=== PATIENT | male | born 1955 | race Caucasian/White ===

== ENCOUNTER 2018-05-23 07:47 | Inpatient (IN) | payer BC ==
[~2018-05-23 07:47] MED LIST: POVIDONE-IODINE 20 ML in SODIUM CL IRRIG SOLUTION 500 ML IRR ONE; ROPIVACAINE 0.2% 80 MG, EPINEPHrine 0.2 MG in SYRINGE 0 ML IU ONE; ROPIVACAINE 0.2% 80 MG, EPINEPHrine 0.2 MG, KETOROLAC TROMETHAMINE 30 MG in SYRINGE 0 ML IU ONE; TRANEXAMIC ACID 1,000 MG in NS 100 ML IV ONE; TRANEXAMIC ACID 3,000 MG in NS (SYRINGE) 50 ML IRR ONE
[2018-05-23] MEDS ORDERED: ONDANSETRON 4 MG/2 ML VIAL IVP ONE (08:00)
[2018-05-23] MEDS ORDERED: FAMOTIDINE 20 MG TAB PO ONE (08:00)
[2018-05-23] MEDS ORDERED: GABAPENTIN 300 MG CAP PO ONE (08:00)
[2018-05-23] MEDS ORDERED: DEXAMETHASONE 4 MG/ML VIAL IVP ONE (08:00)
[2018-05-23] MEDS ORDERED: ACETAMINOPHEN 325 MG TAB PO ONE (08:00)
[2018-05-23] MEDS ORDERED: ceFAZolin 2 GM/DEXTROSE 100 ML IV ONE (08:00)
[2018-05-23] MEDS ORDERED: LR 1,000 ML IV ONE (08:01)
[2018-05-23] MEDS ORDERED: LIDOCAINE 1% 2 ML INJ ID PRN (08:01)
[2018-05-23] MEDS ORDERED: TRANEXAMIC ACID 3,000 MG/50 ML BAG IRR ONE (08:20)
[2018-05-23] MEDS ORDERED: ceFAZolin 1 GM/5 ML SYR ONE (08:20)
--- NOTE | 2018-05-23 09:21 | PDANEPAE ---
ANE History of Present Illness 63 y/o male here for right hip arthroplasty ANE Past Medical History - Cardiovascular History Hx Hypertension: No Hx Arrhythmias: No Hx Chest Pain: No Hx Coronary Artery / Peripheral Vascular Disease: No Hx CHF / Valvular Disease: No Hx Palpitations: No - Pulmonary History Hx COPD: No Hx Asthma/Reactive Airway Disease: No Hx Recent Upper Respiratory Infection: No Hx Oxygen in Use at Home: No Hx Sleep Apnea: No Sleep Apnea Screening Result - Last Documented: Negative - Neurologic History Hx Cerebrovascular Accident: No Hx Seizures: No Hx Dementia: No - Endocrine History Hx Diabetes: Yes - Renal History Hx Renal Disorders: No - Liver History Hx Hepatic Disorders: No - Neurological & Psychiatric Hx Hx Neurological and Psychiatric Disorders: No - Cancer History Hx Cancer: No - Congenital Disorder History Hx Congenital Disorders: No - GI History Hx Gastrointestinal Disorders: No - Other Health History Other Health History: lower right teeth dental implants. left upper teeth missing and in process of having implants put in. glasses for reading - Chronic Pain History Chronic Pain: Yes (right hip) - Surgical History Prior Surgeries: right meniscectomy 30 years ago. 2009 left hip resurfacing ANE Review of Systems Review of systems is: negative Review of Systems: - Exercise capacity Exercise capacity: >=4 METS METS (RN): 4 METS ANE Patient History - Allergies Allergies/Adverse Reactions: ibuprofen Allergy (Verified 05/09/18 11:03) Hives Sulfa (Sulfonamide Antibiotics) Allergy (Verified 05/08/18 11:51) Rash - Home Medications Home medications: home medication list seen and reviewed Home Medications: Acetaminophen [Tylenol ES 500 mg (*)] 500 mg PO Q6HRS PRN 05/08/18 [Last Taken 05/22/18 14:00] Ascorbic Acid [Vitamin C 500 mg (*)] 500 mg PO DAILY 05/08/18 [Last Taken 04:00] Cholecalciferol Vit D3 [Vitamin D3 (*)] 1,000 units PO DAILY 05/08/18 [Last Taken 05/16/18] Glucosamine/Chondroitin [Glucosamine/Chondroitin (*)] 1 each PO DAILY 05/08/18 [ Last Taken 05/16/18] Multivitamins [Multivitamin (*)] 1 each PO DAILY 05/08/18 [Last Taken 05/16/18] Simvastatin [Zocor] 20 mg PO HS 05/08/18 [Last Taken 05/22/18 20:00] Tadalafil [Cialis] 20 mg PO AD PRN 05/08/18 [Last Taken 05/21/18] celeCOXIB [Celebrex (*)] 200 mg PO BID PRN 05/08/18 [Last Taken 05/22/18 20:00] metFORMIN HCL [Glucophage 500 mg (*)] 500 mg PO BIDMEAL 05/08/18 [Last Taken 12/02 20:00] - NPO status NPO Status: no food or drink >8 hours NPO Since - Liquids (Date): 05/23/18 NPO Since - Liquids (Time): 05:00 NPO Since - Solids (Date): 05/22/18 NPO Since - Solids (Time): 19:30 - Smoking Hx Smoking Status: Never smoked - Family Anes Hx Family Hx Anesthesia Complications: none ANE Labs/Vital Signs - Vital Signs Blood Pressure: 140/89 Heart Rate: 68 Respiratory Rate: 19 O2 Sat (%): 95 Height: 172.72 cm Weight: 88.451 kg ANE Physical Exam - Airway Mallampati Score: Class 3 Mouth exam: normal dental/mouth exam - Pulmonary Pulmonary: clear to auscultation - Cardiovascular Cardiovascular: regular rate and rhythym - ASA Status ASA Status: II ANE Anesthesia Plan Anesthesia Plan: spinal
--- NOTE | 2018-05-23 09:51 | PDHPUP ---
History & Physical Update H&P update statement: This history and physical update is based on an assessment of the patient which was completed after admission or registration (within 24 hours), but prior to the surgery/procedure. H&P update: H&P reviewed & patient examined
[2018-05-23] MEDS ORDERED: MIDAZOLAM 2 MG/2 ML VIAL ONE (10:47)
[2018-05-23] MEDS ORDERED: BUPIVACAINE/DEXTROSE 7.5MG/ML 2 ML SPINAL AMP SP ONE ×2 (10:56→11:21)
[2018-05-23] MEDS ORDERED: PROPOFOL/EMULSION 500 MG/50 ML BOTTLE IV ONE (11:05)
[2018-05-23] MEDS ORDERED: GLYCOPYRROLATE 0.2 MG/1 ML VIAL ONE ×2 (11:41)
[2018-05-23] MEDS ORDERED: ePHEDrine SULFATE 25 MG/5 ML SYR ONE ×3 (11:41→12:28)
[2018-05-23] MEDS ORDERED: PHENYLEPHRINE HCL 100 MCG/ML SYR ONE (11:41)
[2018-05-23] MEDS ORDERED: PHENYLEPHRINE HCL 100 MCG/ML SYR IVP PRN (12:20)
[2018-05-23] MEDS ORDERED: NALOXONE HCL 0.4 MG/ML INJ IVP PRN (12:20)
[2018-05-23] MEDS ORDERED: ONDANSETRON 4 MG/2 ML VIAL IVP PRN ×2 (12:20→12:40)
[2018-05-23] MEDS ORDERED: fentaNYL 100 MCG/2 ML INJ IVP PRN (12:20)
--- NOTE | 2018-05-23 12:20 | POSTANESTH ---
Post Anesthetic Evaluation Respiratory Status: Normal, Stable Level of Consciousness/Mental Status: Can Participate in Eval Pain Control: Adequate, Prn Tx Ordered Nausea/Vomiting Control: Adequate, Prn Tx Ordered Complications Possibly Related to Anesthesia: None Noted
[2018-05-23] MEDS ORDERED: PROPOFOL 200 MG/20 ML VIAL ONE (12:25)
--- NOTE | 2018-05-23 12:37 | POSTOPPROG ---
Post Op Note Date of Operation: 05/23/18 Surgeon: Sigifredo Varner Watch Repair Person: Ronni Anesthesiologist: María Cassidy Anesthesia: IV Sedation, Spinal Post-op Diagnosis: Right hip advanced degenerative arthritis Procedure: Right total hip arthroplasty Inf/Abcess present in the surg proc area at time of surgery?: No EBL: 100-500
[2018-05-23] MEDS ORDERED: PROMETHAZINE HCL 25 MG/ML INJ IVP PRN (12:40)
[2018-05-23] MEDS ORDERED: diphenhydrAMINE 25 MG CAP PO PRN (12:40)
[2018-05-23] MEDS ORDERED: TEMAZEPAM 15 MG CAP PO PRN (12:40)
[2018-05-23] MEDS ORDERED: POLYETHYLENE GLYCOL 3350 17 GM PKT PO PRN (12:40)
[2018-05-23] MEDS ORDERED: MAGNESIUM HYDROXIDE 30 ML UDCUP PO PRN (12:40)
[2018-05-23] MEDS ORDERED: ONDANSETRON DISINTEGRATING 4 MG TAB PO PRN (12:40)
[2018-05-23] MEDS ORDERED: traMADol 50 MG TAB PO PRN (12:40)
[2018-05-23] MEDS ORDERED: DIPHENOXYLATE/ATROPINE LOMOTIL 1 TAB PO PRN (12:40)
[2018-05-23] MEDS ORDERED: CYCLOBENZAPRINE 10 MG TAB PO PRN (12:40)
[2018-05-23] MEDS ORDERED: LACTULOSE 20 GM/30 ML UDCUP PO PRN (12:40)
[2018-05-23] MEDS ORDERED: METOCLOPRAMIDE 10 MG/2 ML VIAL IVP PRN (12:40)
[2018-05-23] MEDS ORDERED: NS 500 ML IV PRN (12:40)
[2018-05-23] MEDS ORDERED: PROMETHAZINE HCL 25 MG SUPPR PR PRN (12:40)
[2018-05-23] MEDS ORDERED: BISACODYL 10 MG SUPP PR PRN (12:40)
[2018-05-23] MEDS ORDERED: LR 1,000 ML IV SCH (13:00)
--- NOTE | 2018-05-23 13:36 | GOP ---
DATE OF OPERATION: 05/23/2018 SURGEON: Sigifredo Varner MD RED LEAD BURNER: Polo Diaz [facility] and JEREMY Rodriguez. ANESTHESIA: Combination of Marcaine, spinal, and IV sedation. ANESTHESIOLOGIST: Dr. María Cassidy. PREOPERATIVE DIAGNOSIS: 1. Right hip severe degenerative arthritis. 2. Right knee arthritis. POSTOPERATIVE DIAGNOSIS: 1. Right hip severe degenerative arthritis. 2. Right knee arthritis. PROCEDURE PERFORMED: 1. Right total hip arthroplasty. 2. Supartz injection in the right knee. FINDINGS: DESCRIPTION OF PROCEDURE: The patient was given 2 g of IV Ancef preoperatively within 60 minutes of surgery. He also received 1000 mg of IV tranexamic acid. He was placed on the operating room table and given spinal anesthesia with Marcaine by Dr. Cassidy. His right knee was prepped with ChloraPrep. H e was given another injection of Supartz. He was then given IV sedation. A Sierra catheter was not u sed. He wore a CODY stocking and SCD on the nonoperative leg. He was rolled to the left lateral decu bitus position. The position was secured with the pegboard table attachment. An axillary roll was u sed, and all pressure points were carefully padded. I was careful to lock his pelvis in a rigid vert ical position. His perineum was isolated with plastic adhesive drapes. The right hip and right lowe r extremity were prepped with ChloraPrep. They were draped free using sterile sheets, stockinette, a nd [place] plastic adhesive drapes. The [employer] time-out was performed to verify the correct surgical side and site and the correct patient identity. The [place] time-out was also performed. I made a 5-inch straight oblique posterolateral hip skin incision. The subcutaneous tissues were sha rply divided and hemostasis was obtained using electrocautery. His fascia vamsi was identified and sp lit along the axis of its fibers. I then curved posteriorly and proximally, and split the fascia of the gluteus chito and bluntly split the muscle fibers in line with their orientation. The [place] self-retaining retractor was inserted. His sciatic nerve was located, partially exposed, and protec cody throughout the procedure. The external rotators and the posterior hip capsule were divided as se parate layers at the base of the femoral neck, tagged, and reflected posteriorly. A smooth 8-inch St einmann pin was inserted vertically into the ilium, superior to the acetabulum. An 8-inch drill bit was inserted vertically into the greater trochanter and parallel to the first pin. The distance betw een the two was measured for leg length reference. His femoral head was dislocated posteriorly. Sev ere degenerative changes were present on his femoral head. The femoral neck was osteotomized at the appropriate level and inclination. I was careful to preserve all the posterior capsule and most of the anterior capsule. The remnant of his damaged labrum was excised. I prepared the femur first. This allowed me to drug enforcement administration agent the amount of natural femoral neck anteversion. He had between 10 and 15 degrees of natural femoral neck anteversion. His canal was opened lateral ly with a box chisel. I hand broached sequentially up to a size 5. I used a Miguel Accolade II siz e 5 broach as a trial stem. I was careful to lateralize adequately. Appropriate retractors were inserted to expose the acetabulum. The acetabulum was reamed sequentiall y up to 54 mm. I selected a 54 mm [place] Tritanium cluster hole hemispherical shell. This was dick ed securely into place in the proper degree of inclination and anteversion. I used the transverse ac etabular ligament and other acetabular bony landmarks to help me properly orient the cup. I performed a series of trial reductions to determine length and stability. With the 5 standard offs et stem and a flush trial liner, I took intraoperative AP pelvis x-ray. This demonstrated excellent fit and fill of the femoral component. I thought I could have a little more horizontal cup with slig htly more anteversion. The leg lengths were excellent. I then went back and adjusted the cup positi on. The flush liner was inserted and tapped securely into place. The [place] Accolade II stem and a size 5 with standard offset was inserted, press-fit, and was very tight. I did 1 final trial reduct ion and confirmed that the 0 neck length with a 36 mm head was the proper combination. The [place] B iolox Delta ceramic head with an outside diameter of 36 mm and a neck length of 0 mm was tapped sanjeev winchester onto the clean trunnion. The acetabulum was irrigated, cleaned, and the hip was reduced 1 final time. He had excellent anterior and posterior stability and the correct length. 40 mL of the joint anesthetic cocktail were injected into the capsule, the deep musculature, and the subcutaneous tissues along the skin edges. The joint was thoroughly irrigated 1 final time with a di lute Betadine solution. His sciatic nerve was reinspected and looked unharmed. The external rotators and the posterior hip capsule were repaired in separate layers with #2 FiberWir e sutures through drill holes in the greater trochanter. The fascia vamsi was closed first with 2 fig [id number] #2 FiberWire sutures, followed by a running #2 barbed Ethicon Stratafix PDO suture. The subcutaneous tissues were closed with a running 0 barbed Ethicon Stratafix Monoderm suture. The ski n was closed with a running 3-0 barbed Ethicon Stratafix Monoderm subcuticular suture. The skin edge s were reapproximated and sealed with Dermabond glue. The wound was covered with a large piece of st erile Mepilex waterproof dressing. The sacral Mepilex dressing was also applied. A long-leg CODY stocking and SCD were applied to his right lower extremity. He wore a stocking on the opposite leg during the procedure. An abduction pillow was placed between his knees. He was awaken ed from anesthesia and rolled to the supine position on his [facility]. He was taken to PACU in satisfactory condition. There were no recognized intraoperative complications. The estimated blood loss was 400 mL. The sponge and needle count were correct on 2 occasions. I used a Miguel Tritanium Trident II cluster hole hemispherical shell with an outside diameter of 54 mm. The liner was a Miguel X3 flush highly cross-linked liner with an inside diameter of 36 mm. T he femoral component was a press-fit Miguel standard offset Accolade II stem in size 5. The femoral head was a Miguel Biolox Delta ceramic head with a 0 neck length and a 36 mm outside diameter. Polo Diaz and Danial Valdez acted as surgical assistants. Their assistance was a medical necess ity for safe completion the procedure. /[id number]/MODL
[2018-05-23] MEDS: metFORMIN HCL 500 MG TAB PO SCH (18:35)
[2018-05-23] MEDS: ACETAMINOPHEN 325 MG TAB PO SCH ×2 (18:35→23:43)
[2018-05-23] MEDS: ceFAZolin 2 GM/DEXTROSE 100 ML IV SCH (18:36)
[2018-05-23] MEDS: SENNOSIDES/DOCUSATE SODIUM TAB PO SCH (19:41)
[2018-05-23] MEDS: FAMOTIDINE 20 MG TAB PO SCH (19:42)
[2018-05-23] MEDS: oxyCODONE IR 5 MG TAB PO PRN (19:42)
[2018-05-23] MEDS ORDERED: ATORVASTATIN CALCIUM 10 MG TAB PO SCH (21:00)
[2018-05-23] MEDS: ASPIRIN 325 MG TAB PO SCH (21:32)
[2018-05-24] MEDS: oxyCODONE IR 5 MG TAB PO PRN ×3 (00:06→11:02)
[2018-05-24] MEDS: ceFAZolin 2 GM/DEXTROSE 100 ML IV SCH (03:49)
[2018-05-24] MEDS: ACETAMINOPHEN 325 MG TAB PO SCH ×2 (06:29→11:03)
[2018-05-24] MEDS: FAMOTIDINE 20 MG TAB PO SCH (08:08)
[2018-05-24] MEDS: SENNOSIDES/DOCUSATE SODIUM TAB PO SCH (08:08)
[2018-05-24] MEDS: metFORMIN HCL 500 MG TAB PO SCH (08:08)
[2018-05-24] MEDS: ASPIRIN 325 MG TAB PO SCH (08:08)
[2018-05-24] MEDS ORDERED: FERROUS SULFATE 140 MG TAB.ER PO SCH (09:00)
--- NOTE | 2018-05-24 09:19 | SOAPPROG ---
SOAP Progress Note Assessment/Plan: Assessment: Afebrile. Awake and alert. Moderate pain. Up and walking in frost. Sciatic nerve intact. H/H is good. Films look good. Small spot of blood on dsg. Plan: Continue PT today. DC later today. 05/24/18 09:17 Objective: Vital Signs Temp Pulse Resp BP Pulse Ox 37.1 C 78 16 109/77 93 05/24/18 07:44 05/24/18 07:44 05/24/18 07:44 05/24/18 07:44 05/24/18 07:44 Laboratory Results 05/24/18 04:14 05/23/18 05/24/18 05/25/18 05:59 05:59 05:59 Intake Total 860 Output Total 1375 Balance -515 ICD10 Worksheet Patient Problems: Problems Problem Status Onset Osteoarthritis of right hip Acute
--- NOTE | 2018-05-24 09:35 | GDS ---
ADMISSION DIAGNOSIS: Right hip degenerative arthritis. DISCHARGE DIAGNOSIS: Right hip degenerative arthritis. OPERATION PERFORMED: 05/23/2018: A right total hip arthroplasty. POSTOPERATIVE COMPLICATIONS: None. CONDITION ON DISCHARGE: Improved. DESCRIPTION OF HOSPITAL COURSE: The patient was admitted to the hospital on the morning of surgery. His admission CBC, BUN, creatinine, and electrolytes were all normal. The same day, under a combina tion of Marcaine, spinal, and IV sedation, he underwent a right total hip arthroplasty. Postoperativ ranulfo, he was treated with multimodal DVT prophylaxis, including aspirin. On the first postoperative d ay, his hemoglobin and hematocrit were 11.4 and 32.9. He was seen by Physical Therapy and made good progress with ambulation and stairs. By the time of discharge, he was afebrile, and his wound was dr y and he was independent walking with a walker. DISPOSITION: The patient discharged to his home. He will go to outpatient physical therapy. He may progress to full weightbearing on the right as tolerated. CODY stockings for 1 week. Continue aspir in 325 mg p.o. daily for 21 days. He has prescriptions for oxycodone, tramadol, and Celebrex for don n. I will see him back in the office on June 15, 2018. If there are any problems, he is to call me at the office. /[id number]/MODL
--- NOTE | 2018-05-24 09:55 | ASMTLACE ---
LACE Length of stay for Answers: 2 days current admission Acuity / Level of Answers: Yes Care: Did the patient have an inpatient admission? Comorbidities - select Answers: Diabetes (uncontrolled or all that apply controlled) Opioid dependence / Chronic pain # of Emergency department Answers: 0 visits in the last 6 months Score: 10 Date Signed: 05/24/2018 09:54 AM Electronically Signed By:EFRAIN Umaña
--- NOTE | 2018-05-24 09:56 | ASMTCMCOM ---
CM Note CM Note Notes: Pt had planned OA of hip. PT rec home/outpatient. Pt to have outpatient PT per MD rec. No CM d/c needs identified. Date Signed: 05/24/2018 09:55 AM Electronically Signed By:EFRAIN Umaña
[2018-05-24 11:01] VITALS: BP 117/66
== END 2018-05-24 12:07 | disposition home or self-care (01) | DRG 470 ==
LOC: F3N 07:47 → OBSVTOIN 07:47 → F3N 14:36
PROVIDERS: ADMIT Orthopaedic Surgery; ATTEND Orthopaedic Surgery
PROC: 0SR904Z Replacement of Right Hip Joint with Ceramic on Polyethylene Synthetic Substitute, Open Approach (ICD-10-PCS; principal; 2018-05-23 09:45)
PROC: 3E0U3GC Introduction of Other Therapeutic Substance into Joints, Percutaneous Approach (ICD-10-PCS; principal; 2018-05-23 09:45)
DX: M16.11 Unilateral primary osteoarthritis, right hip (principal); M17.11 Unilateral primary osteoarthritis, right knee; E11.9 Type 2 diabetes mellitus without complications; E78.00 Pure hypercholesterolemia, unspecified
CPT/HCPCS: 97116-GP; 97161-GP; 97165-GO; 97530-GP; J0171; J0690; J1100; J2250; J2370; J2405; J2704; J2795

== ENCOUNTER → 2018-10-03 | Outpatient (CLI) | payer BC | LOC: FIMAGING 09:20 | PROVIDERS: ATTEND Orthopaedic Surgery | DX: M17.11 Unilateral primary osteoarthritis, right knee (principal) ==

== ENCOUNTER 2018-10-24 05:51 | Observation (INO) | payer BC ==
[2018-10-24] MEDS ORDERED: TRANEXAMIC ACID 1,000 MG in NS 100 ML IV ONE (06:00)
[2018-10-24] MEDS ORDERED: TRANEXAMIC ACID 3,000 MG in NS (SYRINGE) 50 ML IRR ONE (06:00)
[2018-10-24] MEDS ORDERED: ROPIVACAINE 0.2% 80 MG, EPINEPHrine 0.2 MG, KETOROLAC TROMETHAMINE 30 MG in SYRINGE 0 ML IU ONE (06:00)
[2018-10-24] MEDS ORDERED: POVIDONE-IODINE 20 ML in SODIUM CL IRRIG SOLUTION 500 ML IRR ONE (06:00)
[2018-10-24] MEDS ORDERED: ONDANSETRON 4 MG/2 ML VIAL IVP ONE (06:03)
[2018-10-24] MEDS ORDERED: ACETAMINOPHEN 325 MG TAB PO ONE (06:03)
[2018-10-24] MEDS ORDERED: FAMOTIDINE 20 MG TAB PO ONE (06:03)
[2018-10-24] MEDS ORDERED: ceFAZolin 2 GM/DEXTROSE 100 ML IV ONE (06:03)
[2018-10-24] MEDS ORDERED: DEXAMETHASONE 4 MG/ML VIAL IVP ONE (06:03)
[2018-10-24] MEDS ORDERED: LR 1,000 ML IV ONE (06:06)
[2018-10-24] MEDS ORDERED: VANCOMYCIN 1 GM VIAL ONE (06:47)
[2018-10-24] MEDS ORDERED: TRANEXAMIC ACID 3,000 MG/50 ML BAG IRR ONE (06:47)
[2018-10-24] MEDS ORDERED: ceFAZolin 1 GM/5 ML SYR ONE (06:47)
[2018-10-24] MEDS ORDERED: MIDAZOLAM 2 MG/2 ML VIAL IVP ONE (06:51)
--- NOTE | 2018-10-24 06:53 | PDANEPAE ---
ANE Past Medical History - Cardiovascular History Hx Hypertension: No Hx Arrhythmias: No Hx Chest Pain: No Hx Coronary Artery / Peripheral Vascular Disease: No Hx CHF / Valvular Disease: No Hx Palpitations: No Cardiovascular History Comment: bp dropped after spinal in may 2018 - Pulmonary History Hx COPD: No Hx Asthma/Reactive Airway Disease: No Hx Recent Upper Respiratory Infection: No Hx Oxygen in Use at Home: No Hx Sleep Apnea: No Sleep Apnea Screening Result - Last Documented: Negative - Neurologic History Hx Cerebrovascular Accident: No Hx Seizures: No Hx Dementia: No - Endocrine History Hx Diabetes: Yes Endocrine History Comment: type 2 - Renal History Hx Renal Disorders: No - Liver History Hx Hepatic Disorders: No - Neurological & Psychiatric Hx Hx Neurological and Psychiatric Disorders: No - Cancer History Hx Cancer: No - Congenital Disorder History Hx Congenital Disorders: No - GI History Hx Gastrointestinal Disorders: No - Other Health History Other Health History: lower right teeth dental implants. left upper teeth missing and in process of having implants put in. glasses for reading - Chronic Pain History Chronic Pain: Yes (right hip) - Surgical History Prior Surgeries: right meniscectomy 30 years ago. 2009 left hip resurfacing ANE Review of Systems Review of Systems: - Exercise capacity METS (RN): 4 METS ANE Patient History - Allergies Allergies/Adverse Reactions: ibuprofen Allergy (Verified 10/11/18 17:51) Hives Sulfa (Sulfonamide Antibiotics) Allergy (Verified 10/11/18 17:51) Rash - Home Medications Home medications: home medication list seen and reviewed Home Medications: Ascorbic Acid [Vitamin C 500 mg (*)] 2,000 mg PO DAILY 05/08/18 [Last Taken 09/05] Cholecalciferol Vit D3 [Vitamin D3 (*)] 2,000 units PO DAILY 05/08/18 [Last Taken 10/23/18] Glucosamine/Chondroitin [Glucosamine/Chondroitin (*)] 1 each PO DAILY 05/08/18 [ Last Taken 10/17/18] Multivitamins [Multivitamin (*)] 1 each PO DAILY 05/08/18 [Last Taken 10/17/18] Simvastatin [Zocor] 20 mg PO HS 05/08/18 [Last Taken 10/23/18] Tadalafil [Cialis] 20 mg PO AD PRN 05/08/18 [Last Taken 10/21/18] metFORMIN HCL [Glucophage 500 mg (*)] 500 mg PO BIDMEAL 05/08/18 [Last Taken 03/05] - NPO status NPO Status: no food or drink >8 hours NPO Since - Liquids (Date): 10/24/18 NPO Since - Liquids (Time): 03:45 NPO Since - Solids (Date): 10/23/18 NPO Since - Solids (Time): 19:00 - Smoking Hx Smoking Status: Never smoked - Family Anes Hx Family Hx Anesthesia Complications: none ANE Labs/Vital Signs - Labs - CBC Platelet Count: 245 - Vital Signs Height: 172.72 cm Weight: 88.451 kg ANE Physical Exam - Airway Neck exam: FROM Mallampati Score: Class 2 Mouth exam: normal dental/mouth exam - Pulmonary Pulmonary: clear to auscultation - Cardiovascular Cardiovascular: regular rate and rhythym - ASA Status ASA Status: II ANE Anesthesia Plan Anesthesia Plan: spinal
[2018-10-24] MEDS ORDERED: PROPOFOL/EMULSION 500 MG/50 ML BOTTLE IV ONE ×2 (07:11→07:42)
[2018-10-24] MEDS ORDERED: GLYCOPYRROLATE 0.2 MG/1 ML VIAL ONE (07:30)
[2018-10-24] MEDS ORDERED: RANITIDINE 50 MG/2 ML VIAL ONE (07:38)
[2018-10-24] MEDS ORDERED: METOCLOPRAMIDE 10 MG/2 ML VIAL ONE (07:38)
[2018-10-24] MEDS ORDERED: PHENYLEPHRINE HCL 100 MCG/ML SYR ONE (08:10)
[2018-10-24] MEDS ORDERED: BUPIVACAINE/DEXTROSE 7.5MG/ML 2 ML SPINAL AMP SP ONE (08:48)
[2018-10-24] MEDS ORDERED: ROPIVACAINE HCL 150 MG/30 ML INJ ONE (08:49)
[2018-10-24] MEDS ORDERED: oxyCODONE IR 5 MG TAB PO PRN (09:11)
[2018-10-24] MEDS ORDERED: fentaNYL 100 MCG/2 ML INJ IVP PRN (09:11)
[2018-10-24] MEDS ORDERED: PHENYLEPHRINE HCL 100 MCG/ML SYR IVP PRN (09:11)
[2018-10-24] MEDS ORDERED: ONDANSETRON 4 MG/2 ML VIAL IVP PRN ×2 (09:11→10:04)
[2018-10-24] MEDS ORDERED: ALBUTEROL 3 ML DEYVIAL IH PRN (09:11)
[2018-10-24] MEDS ORDERED: MEPERIDINE 25 MG/0.5 ML AMP IVP PRN (09:11)
[2018-10-24] MEDS ORDERED: METOCLOPRAMIDE 10 MG/2 ML VIAL IVP PRN ×2 (09:11→10:04)
[2018-10-24] MEDS ORDERED: NALOXONE HCL 0.4 MG/ML INJ IVP PRN (09:11)
[2018-10-24] MEDS ORDERED: PROMETHAZINE HCL 25 MG/ML INJ IVP PRN ×2 (09:11→10:04)
[2018-10-24] MEDS ORDERED: LR 500 ML IV PRN (09:11)
[2018-10-24] MEDS ORDERED: DIAZEPAM 5 MG/ML 1 ML SYR IVP PRN (09:11)
[2018-10-24] MEDS ORDERED: HYDROmorphONE/DILAUDID 1 MG/ML INJ IVP PRN (09:11)
--- NOTE | 2018-10-24 09:29 | POSTOPPROG ---
Post Op Note Date of Operation: 10/24/18 Surgeon: Sigifredo Varner Starter Mechanic: Ronni Anesthesiologist: Ange Anesthesia: IV Sedation, Spinal Post-op Diagnosis: Right knee severe degenerative arthritis varus deformity Procedure: Jerome robot assisted right total knee arthroplasty. Inf/Abcess present in the surg proc area at time of surgery?: No EBL: 50-100 (Adductor canal block with indwelling catheter in the PACU.)
[2018-10-24] MEDS ORDERED: POLYETHYLENE GLYCOL 3350 17 GM PKT PO PRN (10:04)
[2018-10-24] MEDS ORDERED: BISACODYL 10 MG SUPP PR PRN (10:04)
[2018-10-24] MEDS ORDERED: traMADol 50 MG TAB PO PRN (10:04)
[2018-10-24] MEDS ORDERED: NS 500 ML IV PRN (10:04)
[2018-10-24] MEDS ORDERED: ONDANSETRON DISINTEGRATING 4 MG TAB PO PRN (10:04)
[2018-10-24] MEDS ORDERED: DIPHENOXYLATE/ATROPINE LOMOTIL 1 TAB PO PRN (10:04)
[2018-10-24] MEDS ORDERED: TEMAZEPAM 15 MG CAP PO PRN (10:04)
[2018-10-24] MEDS ORDERED: MAGNESIUM HYDROXIDE 30 ML UDCUP PO PRN (10:04)
[2018-10-24] MEDS ORDERED: PROMETHAZINE HCL 25 MG SUPPR PR PRN (10:04)
[2018-10-24] MEDS ORDERED: diphenhydrAMINE 25 MG CAP PO PRN (10:04)
[2018-10-24] MEDS ORDERED: LACTULOSE 20 GM/30 ML UDCUP PO PRN (10:04)
[2018-10-24] MEDS ORDERED: LR 1,000 ML IV SCH (10:30)
--- NOTE | 2018-10-24 10:51 | GOP ---
[f rep st] OPERATIVE REPORT DATE OF OPERATION: 10/23/2018 SURGEON: Sigifredo Varner MD MEDICAL CLAIMS EXAMINER: 1. Polo Diaz CFA. 2. Abilio Valdez, PAC. ANESTHESIA: A combination of Marcaine spinal, IV sedation and adductor canal block. ANESTHESIOLOGIST: María Cassidy MD. PREOPERATIVE DIAGNOSIS: Right knee severe degenerative arthritis with varus deformity. POSTOPERATIVE DIAGNOSIS: Right knee severe degenerative arthritis with varus deformity. PROCEDURE PERFORMED: October 23, 2018, [facility] robot-assisted right total knee arthroplasty. FINDINGS: DESCRIPTION OF PROCEDURE: The patient was given 2 g of IV Ancef preoperatively within 60 minutes of surgery. He also received 1000 mg of preoperative IV tranexamic acid. He was placed on the operatin g room table and given spinal anesthesia with Marcaine by Dr. María Cassidy. He was then placed supine and given IV sedation. A Sierra catheter was not used. He wore a CODY stocking and SCD on the nonoperati ve leg. His right lower extremity was prepped with ChloraPrep from the upper thigh tourniquet to the tips of the toes. It was draped free using sterile sheets, stockinette and Ioban plastic adhesive d rape. The lower leg was wrapped with compressive Coban. The [employer] time-out was performed to verify the correct patient identity and the c orrect surgical side and site. The [place] time-out was performed. The preoperative. [facility] surgical plan was confirmed. The DeMayo leg holding device was sterilely attached to the operating room tabl e and used throughout the procedure to help position the knee. Two 3 mm partially-threaded pins were inserted in a bicortical fashion in the anteromedial cortex of the tibia through puncture wounds abo ut 4 inches distal to the tibial tubercle. At this point, the leg was exsanguinated with a 6-inch co mpressive wrap and the tourniquet was inflated to 250 mmHg. I made a straight midline incision centered on the patella. Subcutaneous tissues were sharply divide d and hemostasis was obtained using electrocautery. A medial subcutaneous flap was developed and cap nakul and synovium were opened in a medial parapatellar fashion. The medial capsule and periosteum we re elevated off the rim the medial tibial plateau. Two 3 mm partially-threaded pins were inserted in the medial cortex of the distal femur in the supracondylar region inside the incision. The femoral checkpoint was inserted just anterior to the 2 bicortical pins. Tibial check point was inserted on t he anteromedial cortex of the tibia about an inch distal to the joint line. The computer arrays were attached and confirmed that the femoral and tibial arrays were both visualized by the computer. The bony anatomy of the knee was registered on the computer starting with a center rotation of the fe moral head, followed by the medial and lateral malleoli. The femoral and tibial surface anatomy were registered. Osteophytes were removed from the medial femoral condyle prior to joint balancing. I performed dynamic joint balancing. He was slightly tight medially. Preoperative plan called for a 6 femur and a 7 tibia. In order to achieve proper gap balancing, I applied 3 degrees of external ro tation of the femur and 1 degree of varus. I moved the tibia distally 1 mm and added 1 degree varus to the tibia. I ended up with 18 to 19 mm of gap in flexion and extension. I allowed for slightly m ore gap in extension to correct his mild preoperative flexion contracture. The robotic saw was positioned and registered. I made appropriate cuts on the femur. The robot was registered for the tibia and the proximal tibial cut was made. I used the correct jig to create the notch in the distal femur using a power oscillating saw in order to accommodate the posterior stabilized femoral component. The size 6 femoral component was applied . I was careful to center it on the distal femur. The posterior compartment was cleared of meniscal remnants. Osteophytes were removed from the back o f the femoral condyles. 40 mL of the joint anesthetic cocktail was injected into the posterior capsu le, the quadriceps muscle and tendon areas, and the subcutaneous tissues along the skin edges. The tibia was sized for a size 7 component. I used a central fin punch. I then drilled 2 additional fixation holes in the medial tibial plateau for the press-fit component. The bone medially was quit e dense. He had good quality bone and I was using press-fit components. With the trial components i n place, I selected a 9 mm posterior stabilized tibial insert. The knee came to full extension and f lexed to 130 degrees. His preoperative flexion contracture was corrected. His collateral ligaments were stable and balanced in extension and 90 degrees of flexion. The gaps on the computer were 18 to 19 mm in extension and flexion. The press-fit tibia component was inserted and tapped securely into place. It was a good tight fit. The femoral component was also tapped into place and was very tight. The 9 mm Triathlon plastic ins ert was inserted and locked into place. The tourniquet was deflated and total tourniquet time was 1 hour and 10 minutes. I then prepared the patella. The original thickness of the patella was measured. Peripheral osteophytes were removed. I cut a flat surface on the back of the patella. He was sized for a 38 mm x 11 mm asymmetric Triath sergo Tritanium press-fit patellar component. I removed enough bone from the patella such that the rem aining bone plus the thickness of the patellar component recreated the original thickness of the dahl lla. His composite thickness was 24 mm. The press-fit patellar component was applied and tightened. Patellar tracking was checked. It was excellent without any digital pressure. The wound was thoroughly irrigated with a dilute Betadine solution. 50 mL of tranexamic acid solutio n was instilled into the joint. The vastus medialis portion of the extensor mechanism was repaired with several interrupted figure-of -eight #2 FiberWire sutures. The capsule and synovium were closed first with multiple interrupted fi [id number] 0 PDS sutures, followed by a running #2 barbed Ethicon Stratafix PDO suture. Subcutane ous tissues were closed with a running 0 barbed Ethicon Stratafix Monoderm suture. The skin was clos ed with a running 3-0 barbed Ethicon Stratafix Monoderm subcuticular suture. The skin was sealed wit h half-inch Steri-Strips. The wound was covered with a large sterile Mepilex waterproof dressing. A long-leg CODY stocking was applied followed by the 6-inch compressive wrap. An SCD was applied follo wed by the cooling device. The sacral Mepilex dressing was applied. I used a size 6 Dutton Triathlon press-fit posterior stabilized femoral component, a size 7 Triathlo n Tritanium press-fit tibial component, a 9 mm posterior stabilized tibial insert and a 38 mm x 11 mm asymmetric patellar press-fit component. The sponge and needle counts were correct on 2 occasions. He was awakened from anesthesia, transferred to his gurney and taken to PACU in satisfactory conditio n. There were no recognized intraoperative complications. In the PACU, for additional postoperative pain control, Dr. Cassidy performed an adductor canal block wit h an indwelling catheter. Polo Diaz and Danial Valdez acted as surgical assistants. Their assistance was a medical necess ity for safe completion of the procedure. /[id number]/MODL
--- NOTE | 2018-10-24 11:30 | POSTANESTH ---
Post Anesthetic Evaluation Cardiovascular Status: Normal, Stable Respiratory Status: Normal, Stable Level of Consciousness/Mental Status: Can Participate in Eval Pain Control: Adequate, Prn Tx Ordered Nausea/Vomiting Control: Adequate, Prn Tx Ordered Complications Possibly Related to Anesthesia: None Noted
[2018-10-24] MEDS: KETOROLAC 15 MG/1 ML SDV IVP SCH ×2 (11:36→17:46)
[2018-10-24] MEDS: oxyCODONE IR 5 MG TAB PO PRN ×2 (13:36→20:56)
[2018-10-24] MEDS: ACETAMINOPHEN 325 MG TAB PO SCH ×2 (15:44→21:09)
[2018-10-24] MEDS: ceFAZolin 2 GM/DEXTROSE 100 ML IV SCH (15:45)
[2018-10-24] MEDS: CYCLOBENZAPRINE 10 MG TAB PO PRN (16:01)
--- NOTE | 2018-10-24 16:41 | SOAPPROG ---
SOCY Progress Note Assessment/Plan: Assessment: s/p right TKA, Jerome robot assisted - this morning Plan: Continue PT efforts Continue pain management - patient states Flexeril is helping quite a bit and may want a script when he goes home Continue VTE ppx: aspirin 325 mg once daily, CODY jones, SCDs Likely discharge tomorrow home with support from his . Patient states he has outpatient PT already scheduled 10/24/18 16:39 Subjective: Patient states he is feeling pretty good at this time. His main complaint was tightness/spasms in his right hamstrings that were making the ZeroKnee very uncomfortable, however Flexeril is helping. He is planning on going home with the support of his . He denies SOB, CP, fever, chills, nausea, vomiting. Objective: Vital Signs Temp Pulse Resp BP Pulse Ox 37.0 C 80 16 117/66 93 10/24/18 15:16 10/24/18 15:16 10/24/18 15:16 10/24/18 15:16 10/24/18 15:16 10/23/18 10/24/18 10/25/18 05:59 05:59 05:59 Intake Total 530 Output Total 700 Balance -170 Patient resting comfortably in bed, his is at the bedside. No acute distress. RLE: Surgical wound dressings are clean, dry and intact. Lower leg compartments are soft and nontender. Negative Homans sign. He can actively DF and PF the foot and great toe against resistance. Grossly NVI distally. ICD10 Worksheet Patient Problems: Problems Problem Status Onset Osteoarthritis of right knee Acute Osteoarthritis of right hip Acute
[2018-10-24] MEDS: metFORMIN HCL 500 MG TAB PO SCH (17:45)
[2018-10-24] MEDS: SENNOSIDES/DOCUSATE SODIUM TAB PO SCH (20:51)
[2018-10-24] MEDS: FAMOTIDINE 20 MG TAB PO SCH (20:52)
[2018-10-24] MEDS ORDERED: ATORVASTATIN CALCIUM 10 MG TAB PO SCH (21:00)
[2018-10-24] MEDS: ASPIRIN 325 MG TAB PO SCH (21:04)
[2018-10-25] MEDS: KETOROLAC 15 MG/1 ML SDV IVP SCH ×2 (00:11→06:22)
[2018-10-25] MEDS: ceFAZolin 2 GM/DEXTROSE 100 ML IV SCH (00:11)
[2018-10-25] MEDS: ACETAMINOPHEN 325 MG TAB PO SCH ×2 (03:38→08:07)
[2018-10-25] MEDS: CYCLOBENZAPRINE 10 MG TAB PO PRN (03:38)
[2018-10-25 07:29] VITALS: BP 109/74
[2018-10-25] MEDS ORDERED: FERROUS SULFATE 325 MG TAB PO SCH (08:00)
[2018-10-25] MEDS: oxyCODONE IR 5 MG TAB PO PRN (08:06)
[2018-10-25] MEDS: metFORMIN HCL 500 MG TAB PO SCH (08:07)
[2018-10-25] MEDS: FAMOTIDINE 20 MG TAB PO SCH (08:07)
[2018-10-25] MEDS: SENNOSIDES/DOCUSATE SODIUM TAB PO SCH (08:07)
[2018-10-25] MEDS: ASPIRIN 325 MG TAB PO SCH (08:08)
--- NOTE | 2018-10-25 08:37 | SOAPPROG ---
SOAP Progress Note Assessment/Plan: Assessment: Afebrile. Up and walking. Mild pain. H/H is good. Dsg is dry. Films look good. 0-95 degrees of flexion. Plan: DC today. Out pt PT. 10/25/18 08:35 Objective: Vital Signs Temp Pulse Resp BP Pulse Ox 36.8 C 69 18 109/74 95 10/25/18 07:28 10/25/18 07:28 10/25/18 07:28 10/25/18 07:28 10/25/18 07:28 Laboratory Results 10/25/18 04:37 10/24/18 10/25/18 10/26/18 05:59 05:59 05:59 Intake Total 730 Output Total 1000 Balance -270 ICD10 Worksheet Patient Problems: Problems Problem Status Onset Osteoarthritis of right knee Acute Osteoarthritis of right hip Acute
--- NOTE | 2018-10-25 08:46 | PDPAINCON ---
Pain Management Consultation Patient referred by : Telly - Subjective Pain at rest (/10): 2 Pain with activity (/10): 2 Pain is: low, well controlled Activity: able to ambulate, out of bed with assistance, participating in PT - Objective Technique: single shot nerve block (catherter placed for repeat bolus today) Site: femoral (ADC catheter) Strength (%): 95 Catheter site: clean, dry, intact, no erythema/edema/exudate Sensory and motor exam: consistent with block Vital signs: stable - Assessment/Plan Assessment/Plan: pain well-controlled, continue current mgmt (rebolused with 30 cc of 0.5% Bupiv with Epi. Good result, 0 comp.)
[2018-10-25] MEDS ORDERED: LIPID EMULSION 20% 100 ML IV PRN (08:47)
--- NOTE | 2018-10-25 08:54 | GDS ---
[f rep st] DISCHARGE SUMMARY ADMISSION DIAGNOSIS: Right knee severe degenerative arthritis to varus deformity. DISCHARGE DIAGNOSIS: Right knee severe degenerative arthritis to varus deformity. OPERATION PERFORMED: October 23, a right total knee arthroplasty, Jerome robot assisted. POSTOPERATIVE COMPLICATIONS: None. CONDITION ON DISCHARGE: Improved. DESCRIPTION OF HOSPITAL COURSE: The patient was admitted to the hospital on the morning of surgery. His admission CBC, electrolytes, BUN, and creatinine were all normal. The same day, under a combina tion of Marcaine, spinal, IV sedation, and adductor canal block he underwent a right total knee arthr oplasty, Jerome robot assisted. Postoperatively, he was treated with multimodal DVT prophylaxis, inclu ding aspirin. He was seen by Physical Therapy and made good progress with ambulation and stairs. On the first postoperative day his hemoglobin and hematocrit were 11.7 and 35.0. He was able to void s pontaneously. DISPOSITION: The patient is discharged to his home. He will have outpatient physical therapy. He m ay progress to full weightbearing on the right as tolerated. CODY stockings for 1 week. Aspirin 325 mg p.o. daily for 21 days. He has prescriptions for Celebrex, oxycodone and tramadol for pain contro l. I will see him back in the office on November 02, 2018. If there are any problems, he is to call me at the office. /[id number]/MODL
--- NOTE | 2018-10-25 09:18 | ASMTLACE ---
LACE Length of stay for Answers: 2 days current admission Acuity / Level of Answers: No Care: Did the patient have an inpatient admission? Comorbidities - select Answers: Diabetes (uncontrolled or all that apply controlled) Opioid dependence / Chronic pain # of Emergency department Answers: 0 visits in the last 6 months Score: 7 Date Signed: 10/25/2018 09:17 AM Electronically Signed By:EFRAIN Umaña
--- NOTE | 2018-10-25 09:19 | ASMTCMCOM ---
CM Note CM Note Notes: Pt had planned knee surgery. PT rec home/outpatient, MD rec outpatient. No CM d/c needs identified. Date Signed: 10/25/2018 09:18 AM Electronically Signed By:EFRAIN Umaña
== END 2018-10-25 11:55 | disposition home or self-care (01) ==
LOC: F3N 05:51
PROVIDERS: ADMIT Orthopaedic Surgery; ATTEND Orthopaedic Surgery
DX: M17.11 Unilateral primary osteoarthritis, right knee (principal)
CPT/HCPCS: 27447; 73560; 77073; 97116; 97161; 97165; 97530; G0378; J0171; J0690; J1100; J1885; J2250; J2370; J2405; J2704; J2765; J2780; J2795; J3370